=== PATIENT | female | born 1995 | race Caucasian/White ===

== ENCOUNTER 2016-10-05 09:41 | Emergency (ER) | payer OTHER ==
[~2016-10-05] VITALS: Ht 162.6 cm; Wt 61.7 kg
[2016-10-05 09:50] VITALS: BP 132/93
--- NOTE | 2016-10-05 09:54 | NUR ---
Patient ambulated to bed 3. RN evaluating patient at bedside.
--- NOTE | 2016-10-05 09:56 | NUR ---
20F BIB SELF C/O DRY COUGH X 2 WEEKS; BL LUNG SOUNDS CLEAR AT THIS TIME; PT STATES TOOK DAYQUIL/NYQUIL, BUT MEDICATION SEEMED TO " MAKE THE COUGH WORSE"; PT A&OX4, DENIES N/V/D OR PAIN AT THIS TIME; SKIN IS WARM/DRY/INTACT; AMBULATORY; PT DENIES MEDICAL HX OR SMOKING AT THIS TIME. PT RESTING IN BED W/ HOB ELEVATED AND IN LOWEST POSITION; POSITIONED FOR COMFORT; ER MD MADE AWARE OF STATUS. WILL CONTINUE TO MONITOR.
[2016-10-05] MEDS ORDERED: ALBUTEROL 0.083% 2.5 MG/3 ML NEBU INH ONE (10:10)
[2016-10-05] MEDS ORDERED: predniSONE 20 MG TAB PO ONE (10:10)
[2016-10-05] MEDS ORDERED: IPRATROPIUM 0.02% 0.5 MG/2.5 ML NEBU INH ONE (10:10)
--- NOTE | 2016-10-05 10:12 | NUR ---
RT AT BEDSIDE.
[2016-10-05 10:37] VITALS: BP 128/73
--- NOTE | 2016-10-05 10:37 | NUR ---
Patient discharged with v/s stable. Written and verbal after care instructions given and explained. Patient alert, oriented and verbalized understanding of instructions. Ambulatory with steady gait. All questions addressed prior to discharge. ID band removed. Patient advised to follow up with PMD. Rx of ZITHROMAX Z-DEACON 250MG TAB & ALBUTEROL 90MCG/ACTUATION INHALATION AEROSOL given. Patient educated on indication of medication including possible reaction and side effects. Opportunity to ask questions provided and answered.
== END 2016-10-05 10:37 | disposition home or self-care (01) ==
LOC: MED 09:41
DX: J20.9 Acute bronchitis, unspecified (principal); R03.0 Elevated blood-pressure reading, without diagnosis of hypertension
CPT/HCPCS: 94640; 99283; J7512; J7613; J7644